=== PATIENT | female | born 1980 | race Caucasian/White ===

== ENCOUNTER 2018-04-23 20:00 | Emergency (ER) | payer BC, SELFPAY ==
[2018-04-23 20:05] VITALS: BP 161/108; PULSE 92; RESP 20; TEMP 36.7; O2SAT 98
--- NOTE | 2018-04-23 20:52 | DI.RAD.S_ITS ---
PROCEDURE: XR TOE RT MIN 2V INDICATIONS: blunt injury TECHNIQUE: 3 views of the right first toe(s) acquired. COMPARISON: None. FINDINGS: Bones: Linear lucency traverses the proximal aspect of the distal phalanx of the first digit, demonstrating articular surface extension to the interphalangeal joint. No suspicious bony lesions. Soft tissues: No suspicious soft tissue densities. IMPRESSION: Mildly displaced fracture of the first digit with articular surface extension. Dictated by: Vianney Thomas M.D. on 04/23/2018 at 21:12 Approved by: Vianney Thomas M.D. on 04/23/2018 at 21:13
[2018-04-23 21:17] VITALS: BP 160/89; PULSE 85; RESP 18; TEMP 36.4; O2SAT 96
--- NOTE | 2018-04-23 21:19 | ED_ITS ---
HPI - Extremity Injury (Lower) <MARY Diaz - Last Filed: 04/23/18 22:20> General Chief Complaint: Extremity Injury, Lower Stated Complaint: RIGHT FOOT TOE INJURY Time Seen by Provider: 04/23/18 21:17 Source: patient Mode of arrival: ambulatory Limitations: no limitations History of Present Illness HPI Narrative: 37-year-old female here for complaint of pain into her right great toe. She states she was walking in the house earlier today she did not have glasses on and she accidentally walked into a corner of a wall striking her great toe on the tip she denies any other injuries. She reports increased pain during the day today and some bruising to the great toe. Increased pain with ambulation. No other concerns or complaints Related Data Allergies Allergy/AdvReac Type Severity Reaction Status Date / Time codeine Allergy Unknown VOMITING Unverified 12/22/17 12:59 Review of Systems <MARY Diaz - Last Filed: 04/23/18 22:20> Constitutional Denies chills, Denies fever(s), Denies lethargy and Denies weakness Eyes Denies change in vision, Denies eye discharge, Denies irritation and Denies loss of vision ENT Ears, Nose, Mouth, and Throat: Denies change in voice, Denies neck pain and Denies sore throat Cardiovascular Denies chest pain, Denies irregular heart rhythm, Denies lightheadedness, Denies palpitations, Denies dyspnea, Denies dyspnea on exertion and Denies orthopnea Respiratory Denies cough, Denies dyspnea, Denies dyspnea on exertion and Denies wheezing Gastrointestinal Gastrointestinal: Denies abdominal pain, Denies change in bowel habits, Denies diarrhea, Denies nausea and Denies vomiting Genitourinary Denies hematuria, Denies flank pain, Denies urinary incontinence and Denies urinary urgency Musculoskeletal Denies neck pain Comments: Right great toe pain Integumentary/Breasts Denies pruritus, Denies erythema, Denies rash and Denies wounds Neurologic Denies confusion, Denies loss of vision and Denies weakness Psychiatric Denies anxiety, Denies confusion, Denies depression, Denies homicidal ideation and Denies suicidal ideation Endocrine Denies palpitations Hematologic/Lymphatic Denies easy bruising Allergic/Immunologic Denies wheezing Exam <MARY Diaz Last Filed: 04/23/18 22:20> Initial Vital Signs Initial Vital Signs: Vital Signs Temperature 98.1 F 04/23/18 20:05 Pulse Rate 92 H 04/23/18 20:05 Respiratory Rate 20 04/23/18 20:05 Blood Pressure 161/108 H 04/23/18 20:05 Pulse Oximetry 98 04/23/18 20:05 Const General: cooperative and well developed Nutritional Appearance: well nourished Orientation: alert, awake, oriented x3 and not confused [facility] Mouth: oral mucosae normal and moist mucous membranes Eyes Conjunctivae: conjunctivae normal Sclera: sclerae normal Pupils: PERRL EOM: EOM intact bilaterally Resp Effort & Inspection: normal respiratory effort, able to speak in complete sentences, no respiratory distress and no use of accessory muscles Auscultation: clear to auscultation bilaterally, no rales, no rhonchi and no wheezes Cardio Rate: regular rate Rhythm: regular rhythm Heart Sounds: no click, no gallops, no murmurs and no rubs Pulses: normal peripheral pulses Skin General: no rashes or lesions noted, No jaundice and No petechiae Neuro General: alert, oriented x3, gait normal and no focal motor deficits Speech: speech normal Extrem Other: Right great toe with ecchymosis and slight swelling. No open lesions. Distal sensation is intact. Full range of motion. Distal cap refill less than 2 sec. No deformities <Sobia Gamez DO - Last Filed: 04/24/18 02:31> Initial Vital Signs Initial Vital Signs: Vital Signs Temperature 98.1 F 04/23/18 20:05 Pulse Rate 92 H 04/23/18 20:05 Respiratory Rate 20 04/23/18 20:05 Blood Pressure 161/108 H 04/23/18 20:05 Pulse Oximetry 98 04/23/18 20:05 Course <MARY Diaz - Last Filed: 04/23/18 22:20> Orders Ordered: ED Orders 04/23/18 20:52 XR toe RT min 2V Stat Vital Signs - 8 hr 04/23/18 20:05 04/23/18 21:17 Temperature 98.1 F 97.6 F Pulse Rate 92 H 85 Respiratory Rate 20 18 Blood Pressure 161/108 H Blood Pressure [Left Arm] 160/89 H Pulse Oximetry 98 96 <Sobia Gamez DO - Last Filed: 04/24/18 02:31> Orders Ordered: ED Orders 04/23/18 20:52 XR toe RT min 2V Stat Vital Signs - 8 hr 04/23/18 20:05 04/23/18 21:17 Temperature 98.1 F 97.6 F Pulse Rate 92 H 85 Respiratory Rate 20 18 Blood Pressure 161/108 H Blood Pressure [Left Arm] 160/89 H Pulse Oximetry 98 96 MDM - Extremity Injury (Lower) <MARY Diaz - Last Filed: 04/23/18 22:20> Imaging Data R toe: Radiologist's impression: PROCEDURE: XR TOE RT MIN 2V INDICATIONS: blunt injury TECHNIQUE: 3 views of the right first toe(s) acquired. COMPARISON: None. FINDINGS: Bones: Linear lucency traverses the proximal aspect of the distal phalanx of the first digit, demonstrating articular surface extension to the interphalangeal joint. No suspicious bony lesions. Soft tissues: No suspicious soft tissue densities. IMPRESSION: Mildly displaced fracture of the first digit with articular surface extension. Dictated by: Vianney Thomas M.D. on 04/23/2018 at 21:12 Approved by: Vianney Thomas M.D. on 04/23/2018 at 21:[address] [facility] Narrative Medical decision making narrative: X-ray of the right great toe shows a distal phalanx mildly displaced fracture of the right great toe. Great toe is carol ann taped for comfort and support along with postop shoe use as directed. Over-the- counter Tylenol or Motrin as needed for any discomfort. Due to great toe fracture she is referred Orthopedics. Patient call other number at number provided. For any worsening symptoms return to the emergency room. Ice and elevation to help with swelling. Discharge Plan Departure Patient Disposition: Home, Self-Care Clinical Impression: Fracture of toe Discharge Date/Time: 04/23/18 22:20 Interventions: ED Discharge Assessment Last Done: 04/23/18 22:15 Instructions: DI for Toe Fracture Activity Restrictions/Additional Instructions: X-ray of the right great toe shows a distal phalanx mildly displaced fracture of the right great toe. Great toe is carol ann taped for comfort and support along with postop shoe use as directed. [id number] Tylenol or Motrin as needed for any discomfort. Due to great toe fracture she is referred Orthopedics. Patient call other number at number provided. For any worsening symptoms return to the emergency room. Ice and elevation to help with swelling. Referrals: Jackson Alberts MD [Primary Care Provider] - Karla Pascual MD [Physician] - Stand Alone Forms: Work/School Restrictions <Sobia Gamez DO - Last Filed: 04/24/18 02:31> Cosign ED Attending Cosignature Attestation: I was immediately available in the department for consultation. Documentation has been reviewed. I agree with assessment and plan.
--- NOTE | 2018-04-23 22:19 | PC.NURSE ---
carol ann taped to second toe. post op shoe applied.
== END 2018-04-23 22:20 | disposition home or self-care (01) ==
PROVIDERS: Emergency Provider Nurse Practitioner Family; PCP Family Medicine
DX: S92.401A Displaced unspecified fracture of right great toe, initial encounter for closed fracture (principal); W22.8XXA Striking against or struck by other objects, initial encounter
CPT/HCPCS: 73660; 99282; 99283

== ENCOUNTER → 2021-01-03 15:34 | Outpatient (CLI) | payer BC, SELFPAY ==
[2021-01-03] MEDS: COVID-19 VACC #1, MRNA(MOD) 100 MCG/0.5 ML VIAL IM (15:50)
== END ==
PROVIDERS: Visit Provider Internal Medicine
DX: Z23 Encounter for immunization (principal)
CPT/HCPCS: 0011A; 91301

== ENCOUNTER → 2021-01-31 15:22 | Outpatient (CLI) | payer BC, SELFPAY ==
[2021-01-31] MEDS: COVID-19 VACC #2, MRNA(MOD) 100 MCG/0.5 ML VIAL IM (15:44)
== END ==
PROVIDERS: Visit Provider Internal Medicine
DX: Z23 Encounter for immunization (principal)
CPT/HCPCS: 0012A; 91301

== ENCOUNTER 2021-04-08 22:00 | Emergency (ER) | payer OTHER, SELFPAY ==
[2021-04-08 22:10] VITALS: BP 187/97; PULSE 80; RESP 17; TEMP 36.9; O2SAT 100; BMI 51.6
[2021-04-09] MEDS: FLUORESCEIN 1 MG STRIP EYE-RIGHT (00:51)
[2021-04-09] MEDS: PROPARACAINE 0.5% OPHTH SOL 2 DROPS EYE-OP (00:52)
--- NOTE | 2021-04-09 01:38 | ED.EYEPROB ---
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 She awoke yesterday afternoon around 2:00 a.m. with foreign body sensation to the right upper outer eye area. Works at [employer]. She went to urgent care and had eye exam and placed on antibiotic ointment for a corneal abrasion. Wears glasses. No contact lenses. Has discomfort in tearing. Patient denies does not want a test. Related Data Previous Rx's Medication Instructions Recorded erythromycin 5 mg/gram (0.5 %) eye 1 cm OPHTHALMIC (EYE) QID 5 Days 04/08/21 ointment #3.5 g Allergies Allergy/AdvReac Type Severity Reaction Status Date / Time codeine Allergy Unknown VOMITING Verified 04/08/21 16:46 Review of Systems Review of Systems Narrative: GENERAL: Denies chills, fatigue, malaise, fever, sweats. HEENT: Denies sinus pain, ear pain, sore throat, complains of right eye pain and redness RESPIRATORY: Denies dyspnea, cough CARDIOVASCULAR: Denies chest pain, palpitations GASTROINTESTINAL: Denies nausea, vomiting, abdominal pain : Denies dysuria, frequency, hematuria MUSCULOSKELETAL: denies muscle or bony pain SKIN: Denies rash, skin lesions NEUROLOGIC: Denies weakness, numbness Patient History Surgical History History of tonsillectomy Status post delivery (09/29/12) Status post hysterectomy (07/26/17) Status post surgery (01/22/17) Family History Father Hypertension High cholesterol Stroke Grandfather Age: 91 Heart disease Hypertension High cholesterol Grandmother Hypertension High cholesterol Mother Age: 62 Hypertension High cholesterol Social History Smoking Status: Never smoker Smoking Status: Never smoker alcohol intake frequency: other Substance Use Type: does not use Exam Narrative Exam Narrative: GENERAL: in no distress, not toxic not dyspneic HEAD: Normocephalic. EYES: Pupils equal round No scleral icterus. Examination right eye is injected sclera. There is no edema swelling erythema of the upper lower eyelids. Upper and lower eyelids were everted. No foreign body. Fluorescein prepared pain Wood's lamp as well as slit lamp used. No foreign body seen. No corneal abrasion. Flushed extensively with normal saline. No ice rink sign, no Herve sign. No foreign body no dendritic lesion no vesicles no corneal abrasion NEURO: AOx4. SKIN: Warm and dry PSYCH: Not anxious, is cooperative Initial Vital Signs Initial Vital Signs: Vital Signs Temperature 98.5 F 04/08/21 22:10 Pulse Rate 80 04/08/21 22:10 Respiratory Rate 17 04/08/21 22:10 Blood Pressure 187/97 H 04/08/21 22:10 Pulse Oximetry 100 04/08/21 22:10 Course Course Course Narrative: No new issues during course of stay Orders Ordered: Discontinued Medications Hydrocodone Bitart/Acetaminophen (Hydrocodone/Acet 5/325 Tablet) 2 tab PO NOW ONE Stop: 04/09/21 01:50 Last Admin: 04/09/21 02:05 Dose: 2 tab Documented by: BLAKE Hydrocodone Bitart/Acetaminophen (Hydrocodone/Acet 5/325 Prepack) 1 bottle MISC SEEINSTR ONE Stop: 04/09/21 01:55 Last Admin: 04/09/21 02:05 Dose: 1 bottle Documented by: BLAKE Fluorescein Sodium (Fluorescein 1 Mg Strip) 1 mg EYE-RIGHT NOW ONE Stop: 04/09/21 00:48 Last Admin: 04/09/21 00:51 Dose: 1 mg Documented by: BLAKE Ondansetron HCl (Ondansetron 4 Mg Odt) 4 mg SL NOW ONE Stop: 04/09/21 01:50 Last Admin: 04/09/21 02:05 Dose: 4 mg Documented by: BLAKE Ondansetron HCl (Ondansetron 4 Mg Odt Prepack) 1 bottle MISC SEEINSTR ONE Stop: 04/09/21 01:55 Last Admin: 04/09/21 02:05 Dose: 1 bottle Documented by: BLAKE Proparacaine HCl (Proparacaine 0.5% Ophth Deepali) 2 drops EYE-OP NOW ONE Stop: 04/09/21 00:48 Last Admin: 04/09/21 00:52 Dose: 2 drops Documented by: BLAKE Reevaluation(s) Reevaluation #1: Spoke with patient regarding exam. She is comfortable with discharge home this morning and follow-up with Ophthalmology. Pain is controlled. 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 Time: 01:53 Vital Signs Vital signs: Vital Signs - 8 hr 04/08/21 22:10 Temperature 98.5 F Pulse Rate 80 Respiratory Rate 17 Blood Pressure 187/97 H Pulse Oximetry 100 MDM - Eye Problem Differential Diagnosis Differential diagnosis: Likely corneal abrasion, conjunctivitis, acute iritis, corneal ulcer and other (Foreign body) MDM Narrative Medical decision making narrative: Appropriate for discharge home. At this time I do not see any foreign body corneal abrasion or dendritic lesions. Otherwise reassuring exam. Return precautions reviewed with patient and she agrees with discharge and follow-up with ophthalmology Discharge Plan Departure Patient Disposition: Home Clinical Impression: Acute right eye pain Instructions: DI for Eye Pain Activity Restrictions/Additional Instructions: No driving or operating machinery this morning/tonight or when taking pain medication. Continue eye ointment given earlier today. As instructed. Call provided Ophthalmology office Dr. White, phone number is [phone]. Call the office this morning and inform you were in the emergency department tonight. Return if worse if any questions or concerns. Prescriptions: No Action erythromycin 5 mg/gram (0.5 %) ointment 1 cm ophthalmic (eye) QID 5 Days Qty: 3.5 RF: 0 Referrals: Kitty White MD [Physician] - Stand Alone Forms: Work Release Note
[2021-04-09] MEDS: ONDANSETRON 4 MG ODT SL (02:05)
[2021-04-09] MEDS: ONDANSETRON 4 MG ODT PREPACK 1 BOTTLE MISC (02:05)
[2021-04-09] MEDS: HYDROCODONE/ACET 5/325 PREPACK 1 BOTTLE MISC (02:05)
[2021-04-09] MEDS: HYDROCODONE/ACET 5/325 TABLET 2 TAB PO (02:05)
[2021-04-09 02:19] VITALS: BP 150/72; PULSE 64; RESP 14; O2SAT 98
== END 2021-04-09 02:21 | disposition home or self-care (01) ==
PROVIDERS: Emergency Provider Emergency Medicine
DX: H57.11 Ocular pain, right eye (principal)
CPT/HCPCS: 99283

== ENCOUNTER → 2021-10-15 10:35 | Outpatient (CLI) | payer OTHER, SELFPAY ==
[2021-10-15 11:01] LABS: COVID19 -Nasal RAPID POSITIVE (Negative)
== END ==
PROVIDERS: Visit Provider Nurse Practitioner Family
DX: U07.1 COVID-19; Z20.822 Contact with and (suspected) exposure to COVID-19
CPT/HCPCS: 87635

== ENCOUNTER → 2025-07-11 13:00 | Outpatient (CLI) | payer OTHER, SELFPAY | PROVIDERS: Visit Provider Nurse Practitioner Family | DX: N89.8 Other specified noninflammatory disorders of vagina (principal); R39.15 Urgency of urination | CPT/HCPCS: 87086; 87147; 87210 ==